=== PATIENT | male | born 1950 | race Caucasian/White ===

== ENCOUNTER → 2021-09-02 | Outpatient (CLI) | payer MEDICARE, BC ==
[~2021-09-02] MED LIST: ATEN25 PO; ATOR20 PO; DIPATR PO; DOXY100 PO; HYDACE5 PO; HYDR1TAB94 PO; LAVAP17G PO; LEVO750 PO; MELO7.5 PO; Nexium40 MG PO; OLME20 PO; OMEP20ER PO; OXYCODONE; PROM25 PO; RXHYDACE PO; TRAM50 PO; ZOLP10 PO; [UNRECOGNIZED DRUG - REMARK]
== END | disposition home or self-care (01) ==
LOC: LAB SHORT 12:07
DX: D22.5 Melanocytic nevi of trunk (principal); D22.61 Melanocytic nevi of right upper limb, including shoulder; D22.62 Melanocytic nevi of left upper limb, including shoulder; L81.4 Other melanin hyperpigmentation; L02.92 Furuncle, unspecified; A49.9 Bacterial infection, unspecified
CPT/HCPCS: 87070; 87205

== ENCOUNTER 2021-10-13 07:44 | Day surgery (SDC) | payer MEDICARE, BC ==
[~2021-10-13] VITALS: Ht 177.8 cm; Wt 93.7 kg
[2021-10-13] MEDS ORDERED: Aspir 8181 MG (08:01)
[2021-10-13] MEDS ORDERED: AIRBORNE ELDER1 EACH (08:02)
[2021-10-13] MEDS ORDERED: DICL75ER (08:02)
[2021-10-13] MEDS ORDERED: CLIN1TS (08:04)
[2021-10-13] MEDS ORDERED: TRAZ50 (08:04)
== END 2021-10-13 10:11 | disposition home or self-care (01) ==
LOC: ORSCSDS 07:44
PROVIDERS: Internal Medicine Gastroenterology
PROC: 0DBL8ZX Excision of Transverse Colon, Via Natural or Artificial Opening Endoscopic, Diagnostic (ICD-10-PCS; principal; 2021-10-13 09:00)
DX: Z12.11 Encounter for screening for malignant neoplasm of colon (principal); Z86.010 Personal history of colon polyps; Z80.0 Family history of malignant neoplasm of digestive organs; K63.5 Polyp of colon; K21.9 Gastro-esophageal reflux disease without esophagitis; I10 Essential (primary) hypertension; E78.5 Hyperlipidemia, unspecified; R73.03 Prediabetes; K57.30 Diverticulosis of large intestine without perforation or abscess without bleeding; K64.8 Other hemorrhoids; Z79.899 Other long term (current) drug therapy
CPT/HCPCS: 88305; J2704; J7120

== ENCOUNTER → 2022-11-24 | Outpatient (CLI) | payer MEDICARE, BC ==
[~2022-11-24] MED LIST changes: +AIRBORNE ELDER1 EACH; +Aspir 8181 MG; +CLIN1TS; +DICL75ER; +TRAZ50
[2022-11-24 14:23] LABS: Adenovirus F 40/41 Not Detected (NOT DETECT); Astrovirus Not Detected (NOT DETECT); Campylobacter Sp Not Detected (NOT DETECT); Cryptosporidium Not Detected (NOT DETECT); Cyclospora Cayetanensis Not Detected (NOT DETECT); E. Coli O157 Not Detected (NOT DETECT); Entamoeba Histolytica Not Detected (NOT DETECT); Enteroaggregative E. coli-EAEC Not Detected (NOT DETECT); Enteropathogenic E. coli-EPEC Not Detected (NOT DETECT); Enterotoxigenic E. coli-ETEC Not Detected (NOT DETECT); Giardia Lamblia Not Detected (NOT DETECT); Norovirus GI/GII Not Detected (NOT DETECT); Plesiomonas Shigelloides Not Detected (NOT DETECT); Rotavirus A Not Detected (NOT DETECT); Salmonella Sp Not Detected (NOT DETECT); Sapovirus Not Detected (NOT DETECT); Shiga Toxin-prod E. coli-STEC Not Detected (NOT DETECT); Shigella/Enteroin E. coli-EIEC Not Detected (NOT DETECT); Vibrio Cholerae Not Detected (NOT DETECT); Vibrio Sp Not Detected (NOT DETECT); Yersinia Enterocolitica Not Detected (NOT DETECT)
== END ==
LOC: LAB SHORT 09:40
PROVIDERS: Physician Assistant Medical
DX: R19.7 Diarrhea, unspecified (principal)
CPT/HCPCS: 87507

== ENCOUNTER → 2023-08-07 | Outpatient (CLI) | payer MEDICARE, BC ==
[2023-08-07 15:23] LABS: C DIFFICILE DNA NEGATIVE (Negative)
== END | disposition home or self-care (01) ==
LOC: LAB SHORT 09:15 → LAB 09:15
PROVIDERS: Family Medicine
DX: R19.7 Diarrhea, unspecified (principal)
CPT/HCPCS: 87015; 87045; 87046; 87205; 87493; 87899

== ENCOUNTER → 2023-12-07 | Outpatient (CLI) | payer MEDICARE, BC | LOC: LAB SHORT 11:11 → LAB 11:11 | DX: L82.1 Other seborrheic keratosis (principal) | CPT/HCPCS: 88305 ==

== ENCOUNTER 2025-01-21 11:13 | Day surgery (SDC) | payer MEDICARE, BC ==
[~2025-01-21] VITALS: Ht 177.8 cm; Wt 97.2 kg
[2025-01-21] MEDS ORDERED: TRAZODONE TAB 50M (11:27)
[2025-01-21] MEDS ORDERED: OLMESARTAN MEDO20 MG (11:28)
[2025-01-21] MEDS ORDERED: NEURONTIN300 MG (11:28)
[2025-01-21] MEDS ORDERED: MELATONIN5 M1 (11:29)
[2025-01-21 13:21] VITALS: BP 111/78
== END 2025-01-21 13:24 | disposition home or self-care (01) ==
LOC: ORSCSDS 11:13
PROVIDERS: Internal Medicine Gastroenterology
PROC: 0DBN8ZX Excision of Sigmoid Colon, Via Natural or Artificial Opening Endoscopic, Diagnostic (ICD-10-PCS; principal; 2025-01-21 12:30)
PROC: 0DBH8ZX Excision of Cecum, Via Natural or Artificial Opening Endoscopic, Diagnostic (ICD-10-PCS; principal; 2025-01-21 12:30)
PROC: 0DBM8ZX Excision of Descending Colon, Via Natural or Artificial Opening Endoscopic, Diagnostic (ICD-10-PCS; principal; 2025-01-21 12:30)
DX: Z12.11 Encounter for screening for malignant neoplasm of colon (principal); Z86.0101 Personal history of adenomatous and serrated colon polyps; Z80.0 Family history of malignant neoplasm of digestive organs; D12.0 Benign neoplasm of cecum; D12.4 Benign neoplasm of descending colon; D12.5 Benign neoplasm of sigmoid colon; K57.30 Diverticulosis of large intestine without perforation or abscess without bleeding; Z79.899 Other long term (current) drug therapy
CPT/HCPCS: 88305; J2704; J7120